=== PATIENT | male | born 1950 | race Caucasian/White ===

== ENCOUNTER 2024-05-09 06:01 | Day surgery (SDC) | payer MEDICARE ==
[~2024-05-09] VITALS: Ht 172.7 cm; Wt 95.0 kg
[~2024-05-09 06:01] MED LIST: LACTATED RINGER'S 1,000 ML IV SCH
[2024-05-09] MEDS ORDERED: FAMOTIDINE 20 MG/ 2 ML VIAL ONE (06:41)
[2024-05-09] MEDS ORDERED: METOCLOPRAMIDE HCL 10 MG/2 ML SDV ONE (06:41)
[2024-05-09] MEDS ORDERED: propofoL 200 MG/20 ML VIAL ONE (06:41)
[2024-05-09] MEDS ORDERED: KETOROLAC TROMETHAMINE 30 MG/ML VIAL ONE (06:41)
[2024-05-09] MEDS ORDERED: fentaNYL citrate 100 MCG/2 ML VIAL ONE (06:41)
[2024-05-09] MEDS ORDERED: ondansetron HCL 4 MG/2 ML VIAL ONE (06:41)
[2024-05-09] MEDS ORDERED: DEXAMETHASONE SOD PHOS 4 MG/ML VIAL ONE (06:41)
[2024-05-09] MEDS ORDERED: MIDAZOLAM HCL 2 MG/2 ML VIAL ONE (06:41)
[2024-05-09] MEDS ORDERED: LACTATED RINGER'S 1,000 ML IV ONE (06:41)
[2024-05-09] MEDS ORDERED: CEFAZOLIN SODIUM 2 GM/20 ML SYR IV SCH (07:00)
[2024-05-09] MEDS ORDERED: IBLOOD GLUCOSE TEST STRIP 1 EA TEST VI PRN ×2 (07:00→08:15)
[2024-05-09] MEDS ORDERED: LIDOCAINE HCL 1% 5 ML SDV INJ ONE (07:00)
[2024-05-09] MEDS ORDERED: BUPIVACAINE HCL 0.25% 50 ML MDV ONE (07:01)
[2024-05-09] MEDS ORDERED: TRAMADOL HCL 50 MG TAB PO PRN (07:30)
[2024-05-09] MEDS ORDERED: ondansetron HCL 4 MG/2 ML VIAL IV PRN ×2 (07:30→08:15)
--- NOTE | 2024-05-09 07:30 | NUR ---
PT NOT AVAILABLE FOR VISIT. PROVIDED PRAYER.
[2024-05-09] MEDS ORDERED: NALOXONE HCL 0.4 MG SYR IV PRN (08:15)
[2024-05-09] MEDS ORDERED: METOCLOPRAMIDE HCL 10 MG/2 ML SDV IV PRN (08:15)
[2024-05-09] MEDS ORDERED: MORPHINE SULFATE 10 MG/ML VIAL IV PRN (08:15)
[2024-05-09] MEDS ORDERED: droPERidol 5 MG/2 ML VIAL IV PRN (08:15)
[2024-05-09] MEDS ORDERED: fentaNYL citrate 50 MCG/ML SDV IV PRN (08:15)
[2024-05-09] MEDS ORDERED: PROCHLORPERAZINE EDISYLATE 10 MG/2 ML VIAL IV PRN (08:15)
--- NOTE | 2024-05-09 09:09 | NUR ---
05/09/24 0908 Luz Kitchen 0850-PT ARRIVES TO PACU ON 10L VIA MASK. PT IS REACTIVE TO VERBAL STIMULI. PT HAS OPA IN PLACE. RESP EVEN AND UNLABORED. O2 DECREASED TO 6L. 0854-OPA REMOVED. RESP EVEN AND UNLABORED. O2 SAT AT 99% ON 6L VIA MASK. 0900-PT OPENS EYES. RESP EVEN AND UNLABORED. O2 SAT AT 99% ON 6L VIA MASK. PT DENIES PAIM AND NAUSEA. 0908-PT IS DROWSY. RESP EVEN AND UNLABRED. O2 SAT AT 99% ON RA. DENIES PAIN AND NAUSEA.
[2024-05-09 09:32] VITALS: BP 137/77
--- NOTE | 2024-05-09 10:33 | NUR ---
0935-PT BACK TO ROOM FROM PACU TO GET DRESSED. DAUGHTER IN ROOM TO HELP. PT WOULD LIKE A LEG BAG. SP TUBE SECURED TO L LEG AND LEG BAG SECURED TO UPPER THIGH. 0945-WENT OVER DISCHARGE INSTRUCTIONS WITH PT AND DAUGHTER. ALL QUESTIONS ANSWERED. 0950-RIDE PROVIDED TO FRONT OF HOSPITAL WHERE DAUGHTER WAS WAITING WITH THE CAR.
[2024-05-14 09:10] LABS: CALCULI MASS 140 mg (())
== END 2024-05-09 10:00 | disposition home or self-care (01) ==
LOC: OPS 06:01 → DS 06:01 → OPS 07:30 → DS 07:30 → OPS 10:00 → DS 13:50
PROVIDERS: ATTEND Urology
PROC: 0T9B40Z Drainage of Bladder with Drainage Device, Percutaneous Endoscopic Approach (ICD-10-PCS; principal; 2024-05-09)
DX: R33.9 Retention of urine, unspecified (principal); N32.0 Bladder-neck obstruction; G31.83 Neurocognitive disorder with Lewy bodies; F02.80 Dementia in other diseases classified elsewhere, unspecified severity, without behavioral disturbance, psychotic disturbance, mood disturbance, and anxiety; I10 Essential (primary) hypertension
CPT/HCPCS: 00860; 82365; J0690; J1100; J1885; J2250; J2405; J2704; J2765; J3010; J7121